=== PATIENT | male | born 1955 | race Caucasian/White ===

== ENCOUNTER 2019-07-31 09:48 | Inpatient (IN) ==
[2019-07-31 10:29] LABS: BASO# 0.03 X1000 (0.0-0.2); BASO% 0.2 % (0.0-0.8); EOS# 0.14 X1000 (0.0-0.7); EOS% 0.9 % (0.0-10.0); HEMATOCRIT 45.7 % (42.0-52.0); HEMOGLOBIN 15.2 g/dL (14.0-18.0); IMM GRAN# 0.05 X1000 (0.0-0.04); IMM GRAN% 0.3 % (0.0-0.5); LYMPH# 2.02 X1000 (1.2-3.4); LYMPH% 12.7 % (20.5-51.1); MCH 30.4 PG (27-31); MCHC 33.3 g/dL (33-37); MCV 91.4 FL (81-99); MONO# 1.46 X1000 (0.11-0.59); MONO% 9.2 % (1.7-9.3); MPV 10.9 FL (7.4-10.4); NEUT# 12.19 X1000 (1.4-6.5); NEUT% 76.7 % (42.2-75.2); PLT 311 X1000 (130-400); RDW 13.4 % (11.5-14.5); WBC 15.89 X1000 (4.8-10.8)
[2019-07-31 10:57] LABS: AGAP 16; ALBUMIN 4.7 g/dL (3.5-5.0); ALKALINE PHOSPHATASE 89 U/L (32-122); BUN 15 mg/dL (8-22); CALCIUM 9.4 mg/dL (8.8-10.2); CHLORIDE 102 mmol/L (98-107); COSMO 286; CREATININE 0.8 mg/dL (0.7-1.2); ESTIMATED GFR > 60; GLUCOSE 144 mg/dL (70-104); GOT 15 U/L (10-34); GPT 30 U/L (10-44); LIPASE 14 U/L (13-60); POTASSIUM 4.1 mmol/L (3.5-5.1); SODIUM 142 mmol/L (136-145); TCO2 23 mmol/L (25-35); TOTAL PROTEIN 7.7 g/dL (6.3-8.3)
[2019-07-31 11:06] LABS: URINE SOURCE CLEAN CATCH
[2019-07-31 11:23] LABS: BILIRUBIN URINE NEGATIVE (NEGATIVE); BLOOD URINE NEGATIVE (NEGATIVE); COLOR YELLOW; GLUCOSE URINE TRACE mg/dL (NEGATIVE); KETONE URINE NEGATIVE (NEGATIVE); LEUKOCYTES URINE NEGATIVE (NEGATIVE); NITRITE URINE NEGATIVE (NEGATIVE); PH URINE 5.5; PROTEIN URINE TRACE mg/dL (NEGATIVE); SP GRAVITY URINE 1.026; TURBIDITY URINE CLEAR (CLEAR); UROBILINOGEN URINE NORMAL (NORMAL)
[2019-07-31 11:24] LABS: UR EPITHELIAL CELLS <10 /HPF (<10); URINE BACTERIA NEGATIVE /HPF; URINE RBC <10 /HPF (<10); URINE WBC <10 /HPF (<10)
--- NOTE | 2019-07-31 11:34 | Diag Imaging Result Doc PS360 ---
EXAM: FLAT/UPRIGHT ABD/1 VIEW CHEST HISTORY: ABD PAIN VOMITIN HX OF BOWEL OBSTRUCTION TECHNIQUE: Two view abdomen. Single view chest. COMPARISON: 06/28/2017 FINDINGS: There are multiple dilated proximal small bowel loops with a paucity of distal gas and air-fluid levels on the erect view consistent with high-grade mechanical small bowel obstruction. No free air is appreciated. No pulmonary infiltrates. IMPRESSION: High-grade mechanical small bowel obstruction. Electronically signed by Isamar Huitron 07/31/2019 11:32 AM
[2019-07-31] MEDS ORDERED: ZOFRAN IV ONE (13:27)
[2019-07-31] MEDS ORDERED: MORPHINE IV ONE (13:44)
[2019-07-31] MEDS ORDERED: NS 1,000 ML IV SCH (14:00)
--- NOTE | 2019-07-31 14:31 | Diag Imaging Result Doc PS360 ---
EXAM: CT ABD/PELVIS W/IV CONT ONLY 07/31/2019 HISTORY: SBO TECHNIQUE: This exam was performed using automated exposure control, adjustment of mA or kV according to patient size, and/or use of iterative reconstruction technique. COMMENT: There is no evidence of acute disease in the visualized portion of the chest. There is hepatic steatosis. The spleen and adrenal glands pancreas and kidneys are stable in appearance. There is cholelithiasis. The aorta is not distended. The mesenteric and renal arteries are patent. There is some gas in the colon without evidence of dilatation. There are distended small bowel loops in the proximal jejunum. There is a transitional zone at the level of the umbilicus on image 111 in the midline anteriorly. The ileum distal to this is normal in caliber. The appendix is normal in appearance. Pelvis: There is no evidence of free fluid. The urinary bladder is unremarkable. There are sclerotic nodules in the right iliac bone which have not changed significantly since the previous examination of 06/25/2017. This presumably due to bone islands. IMPRESSION: 1. Partial small bowel obstruction similar in appearance to the previous study. 2. Hepatic steatosis. Electronically signed by Darren Aguirre 07/31/2019 2:29 PM
--- NOTE | 2019-07-31 15:43 | HISTORY AND PHYSICAL ---
PRIMARY CARE PHYSICIAN: Dr. Arguello. CHIEF COMPLAINT: Of abdominal pain, nausea, vomiting and diarrhea that began around 9 p.m. last night and progressively worsened, last known bowel movement was Wednesday. HISTORY OF PRESENTING ILLNESS: This is a 63-year-old male who presents to [facility] ER with complaints of generalized abdominal pain worse in the left lower quadrant with nausea, vomiting and diarrhea that began around 9 p.m. last night and progressively worsened. Last known good bowel movement was on Wednesday. Workup in the emergency room showed a white blood cell count of 15.89. Abdomen x-ray showed a high-grade mechanical small- bowel obstruction. CT of the abdomen and pelvis showed a partial small-bowel obstruction similar in appearance to a previous study and hepatic steatosis so he will be admitted to the medical unit at [place] for further evaluation and treatment. PAST MEDICAL HISTORY: Of a small bowel obstruction 2 years ago. PAST SURGICAL HISTORY: Hernia repair. FAMILY HISTORY: Reviewed and noncontributory. SOCIAL HISTORY: He currently lives with family. Denies any tobacco use. States he drinks 6 to 12 beers on the weekends and denies any illicit drug use. ALLERGIES: No known drug allergies. HOME MEDICATIONS: We will hold his ibuprofen 400 mg p.o. p.r.n. LABORATORY DATA: Showed a white blood cell count of 15.89, hemoglobin 15.2, hematocrit 45.7, platelets 311,000. Sodium 142, potassium 4.1, chloride 102, CO2 23, BUN of 15, creatinine 0.8, glucose 144, amylase 41, lipase 14. Urinalysis is negative. Abdomen x-ray showed a high-grade mechanical small-bowel obstruction. CT of the abdomen and pelvis showed a partial small-bowel obstruction similar in appearance to the previous study and a hepatic steatosis. REVIEW OF SYSTEMS: He denied any fever, chills, blurred vision, dizziness, chest pain, coughing, shortness of breath, had abdominal pain worse in the left lower quadrant, nausea, vomiting, diarrhea. Denied any burning or hurting with urination. PHYSICAL EXAMINATION: On arrival had a temperature of 98 degrees, pulse 90, respirations 18, blood pressure 182/95, saturating 95% on room air. GENERAL: This is a 63-year-old male who is lying in the bed and answers questions appropriately. HEENT: Normocephalic, atraumatic. Normal ENT inspection. Oropharynx and nares are clear. Pupils are equal, round, and reactive to light, accommodation. Extraocular movements are intact. NECK: Normal inspection, normal range of motion. LUNGS: Clear to auscultation bilaterally with equal lung expansion, chest wall movement. HEART: With regular rate and rhythm. No murmurs, rubs or gallops. ABDOMEN: Was soft, there is tenderness to palpation throughout but that is worse in the left lower quadrant. Hypoactive bowel sounds x4 quadrants. MUSCULOSKELETAL: He had 5/5 strength x4 extremities. NEUROLOGICAL: The cranial nerves 2-12 appear grossly intact. ASSESSMENT: 1. Partial small-bowel obstruction. 2. Generalized abdominal pain with nausea, vomiting, diarrhea secondary to #1. 3. Leukocytosis. 4. Ethanol abuse . OUR PLAN: He will be admitted to the medical unit placed on telemetry, held n.p.o. Will consult General Surgery, apply SCDs for DVT prophylaxis. Place on normal saline at 125 mL an hour, Ativan 1 mg IV q.4 hours p.r.n. for alcohol withdrawal, Zofran 4 mg IV q.4 hours p.r.n. nausea, vomiting. Recheck CBC, BMP in the a.m. Further orders after seen by attending and by analytical consultant. Dictated by IRA Mcelroy for Benigno Tellez MD cc: MD Benigno San MD
[2019-07-31] MEDS ORDERED: MORPHINE IV PRN (16:57)
[2019-07-31] MEDS ORDERED: ATIVAN IV PRN (17:52)
[2019-07-31] MEDS ORDERED: ZOFRAN IV PRN (17:52)
--- NOTE | 2019-07-31 18:06 | PROVIDER DOCUMENTATION ---
This chart was entered by Madelaine Barreto Scribe, acting as scribe for Maged Alicea MD. HPI-Abdominal Pain/GI Problem - General Chief Complaint: Abdominal Pain Stated Complaint: POSS BOWEL OBS Time Seen by Provider: 07/31/19 13:42 Source: patient Allergies/Adverse Reactions: Patient Allergies Allergy/AdvReac Type Severity Reaction Status Date / Time No Known Allergies Allergy Verified 07/31/19 14:30 Home Medications: Home Medication List Medication Instructions Recorded Confirmed Last Taken Type Ibuprofen [Advil] 400 mg PO PRN PRN 07/31/19 07/31/19 Unknown History - History of Present Illness-ABD Nature of Presenting Problems: Pt is a 63 yom who presents to the ED with a cc of abd pain. Pt states that the pain began this morning around 9:00am. Pt has a hx of an bowel obstruction. Pt reports N/V but no diarrhea or bloody stool. Pt state sthat he felt "hot this morning" but is unsure of fever. Pt denies any chest pain but reports SOB w/ exertion. Pt does not present to the ED with any other complaints. Abdominal Pain Onset Location: reports: LUQ, epigastric Quality of Pain: reports: aching Severity in ED: reports: mild Onset/Duration: reports: this morning Timing: reports: still present Activities at Onset: reports: none Exposure to sick contacts?: No Modifying Factors: improves with: nothing Associated Symptoms: reports: nausea, vomiting Last BM: this morning Dark Stools Present?: reports: none noticed Rectal Bleeding: reports: none Rectal Pain: reports: none Emesis Description: reports: none Bruising or Bleeding Gums?: No Similar Symptoms Previously?: No Recently seen or treated by another doctor?: No Review of Systems - Adult - REVIEW OF SYSTEMS - ADULT Constitutional: reports: see HPI Eyes: reports: no symptoms reported Ears, Nose, Mouth & Throat: reports: no symptoms reported Cardiovascular: reports: no symptoms reported Respiratory: reports: see HPI, shortness of breath (w/ exertion) Gastrointestinal: reports: see HPI, abdominal pain (LUQ, Epigastric), nausea, vomiting Genitourinary: reports: no symptoms reported Musculoskeletal: reports: no symptoms reported Integumentary: reports: no symptoms reported Neurological: reports: no symptoms reported Psychiatric: reports: no symptoms reported Endocrine: reports: no symptoms reported Hematologic/Lymphatic: reports: no symptoms reported Allergic/Immunologic: reports: no symptoms reported All Other Systems: Reviewed and Negative Past History - Adult - PAST MEDICAL HISTORY-ADULT Review of Records: reports: Old Records Reviewed Major Childhood Illnesses: reports: denies history Cardiovascular: reports: denies history - IMMUNIZATION STATUS Childhood Immunizations: See Nurse Assessment Flu Vaccine: See Nurse Assessment - FAMILY HISTORY Family History: reviewed, not pertinent - SOCIAL HISTORY Smoking: non-smoker Substance Use: denies Living Situation: family Physical Exam-General - PHYSICAL EXAM-ADULT Initial Vital Signs Reviewed: Yes - CONSTITUTIONAL General Appearance: alert, no apparent distress - EYES Eyes: PERRL/EOMI, pink conjunctivae - HEAD, EARS, NOSE, MOUTH & THROAT HENMT: normocephalic/atraumatic, moist mucous membranes, normal ENT inspection, TMs normal, pharynx normal - NECK Neck: non-tender, normal inspection - RESPIRATORY Respiratory: chest non-tender, lungs clear, normal breath sounds. negative: c rackles, wheezing - CARDIOVASCULAR Cardiovascular: normal peripheral pulses, regular rate, rhythm, no edema, no gallop, no JVD, no murmur. negative: bradycardia, tachycardia - GASTROINTESTINAL (ABDOMEN) Abdominal Exam: tenderness (LUQ, Epigastric). negative: normal bowel sounds (decreased) - MUSCULOSKELETAL Back Exam: normal inspection Extremity: normal range of motion, non-tender, normal inspection - SKIN Integumentary: normal color, normal turgor, warm/dry. negative: ecchymosis, erythema - PSYCHIATRIC Psych/Mental Status: normal mood/affect, normal thought content, normal thought process, oriented x 3 Progress - PLAN OF CARE/RESULTS Progress/Plan/Lab Results: Vital Signs - 8 hr 07/31/19 10:08 Temperature 98 F Pulse Rate 90 Respiratory Rate 18 Blood Pressure 182/95 O2 Sat by Pulse Oximetry 95 Laboratory Results - last 24 hr 07/31/19 07/31/19 07/31/19 10:16 10:16 10:16 WBC 15.89 H RBC 5.00 Hgb 15.2 Hct 45.7 MCV 91.4 MCH 30.4 MCHC 33.3 RDW Std Deviation 13.4 Plt Count 311 MPV 10.9 H Immature Gran % (Auto) 0.3 Neut % (Auto) 76.7 H Lymph % (Auto) 12.7 L Monroe % (Auto) 9.2 Eos % (Auto) 0.9 Baso % (Auto) 0.2 Immature Gran # (Auto) 0.05 H Neut # (Auto) 12.19 H Lymph # (Auto) 2.02 Monroe # (Auto) 1.46 H Eos # (Auto) 0.14 Baso # (Auto) 0.03 Sodium 142 Potassium 4.1 Chloride 102 Carbon Dioxide 23 L Anion Gap 16 BUN 15 Creatinine 0.8 Estimated GFR/1.73 m2 > 60 BUN/Creatinine Ratio 19 Glucose 144 H Calculated Osmolality 286 Calcium 9.4 Total Bilirubin 1.00 AST 15 ALT 30 Alkaline Phosphatase 89 Total Protein 7.7 Albumin 4.7 Globulin 3.0 Albumin/Globulin Ratio 2.0 Amylase 41 Lipase 14 Urine Source Urine Color Urine Turbidity Urine pH Ur Specific [place] Urine Protein Ur Glucose (Stick) Ur Ketones (Stick) Urine Blood Urine Nitrite Urine Bilirubin Urobilinogen Dipstick Urine Leukocytes Urine WBC (Auto) Urine RBC (Auto) U Epithel Cells (Auto) Urine Bacteria (Auto) 07/31/19 11:04 WBC RBC Hgb Hct MCV MCH MCHC RDW Std Deviation Plt Count MPV Immature Gran % (Auto) Neut % (Auto) Lymph % (Auto) [place] % (Auto) Eos % (Auto) Baso % (Auto) Immature Gran # (Auto) Neut # (Auto) Lymph # (Auto) Monroe # (Auto) Eos # (Auto) Baso # (Auto) Sodium Potassium Chloride Carbon Dioxide Anion Gap BUN Creatinine Estimated GFR/1.73 m2 BUN/Creatinine Ratio Glucose Calculated Osmolality Calcium Total Bilirubin AST ALT Alkaline Phosphatase Total Protein Albumin Globulin Albumin/Globulin Ratio Amylase Lipase Urine Source CLEAN CATCH Urine Color YELLOW Urine Turbidity CLEAR Urine pH 5.5 Ur Specific [place] 1.026 Urine Protein TRACE A Ur Glucose (Stick) TRACE Ur Ketones (Stick) NEGATIVE Urine Blood NEGATIVE Urine Nitrite NEGATIVE Urine Bilirubin NEGATIVE Urobilinogen Dipstick NORMAL Urine Leukocytes NEGATIVE Urine WBC (Auto) <10 Urine RBC (Auto) <10 U Epithel Cells (Auto) <10 Urine Bacteria (Auto) NEGATIVE Orders Category Date Time Status CT ABD/PELVIS W/IV CONT ONLY [CT] Stat Exams 07/31/19 13:32 Ordered FLAT/UPRIGHT ABD/1 VIEW CHEST [RAD] Stat Exams 07/31/19 10:11 Completed AMYLASE [CHEM] Stat Lab 07/31/19 10:16 Completed CBC WITH DIFF [HEME] Stat Lab 07/31/19 10:16 Completed COMPREHENSIVE METABOLIC PANEL [CHEM] Stat Lab 07/31/19 10:16 Completed LIPASE [CHEM] Stat Lab 07/31/19 10:16 Completed URINALYSIS W/POSS RFLX CULT [URINALYSIS] Stat Lab 07/31/19 11:04 Completed Ondansetron [Zofran] Med 07/31/19 13:27 Discontinued 8 mg IV NOW ONE Result Diagrams: 07/31/19 10:16 07/31/19 10:16 Departure - Departure Date of Disposition Decision: 07/31/19 Time of Disposition Decision: 13:57 DIAGNOSIS: Small bowel obstruction Disposition: ADMITTED INPATIENT 09 Certified Medical Emergency: Emergent Condition: Good - Critical Care Note This patient required my direct & personal management of CC.: No Attestation - Physician/ DIEGO Attestation Patient care was provided by Advanced Practice Provider:: No The physician spent face to face time with patient:: Yes Advanced Practice Provider documentation review:: Supervising physician onsite and consulted in the evaluation and care of this patient. The physician did have a face to face encounter with the patient. This chart was documented by the indicated scribe, (Madelaine Barreto Scribe) and accurately reflects the services I performed and decisions made by me, Maged Alicea MD, as attested by the provider's signature.
--- NOTE | 2019-07-31 19:22 | Diag Imaging Result Doc PS360 ---
EXAM: CHEST-PORTABLE 07/31/2019 HISTORY: NG tube placement TECHNIQUE: Portable upright chest and abdomen for NG tube placement COMMENT: The NG tube tip is in the fundus of the stomach. There is dilatation of multiple small bowel loops which appears slightly better than on the previous study at 1052. IMPRESSION: NG tube in the stomach. Electronically signed by Darren Aguirre 07/31/2019 7:20 PM
--- NOTE | 2019-07-31 19:22 | HISTORY AND PHYSICAL ---
ADDENDUM: Patient seen and examined by myself. Full note dictated and discussed with nurse practitioner. Patient presented to the hospital with abdominal pain, progressively worsening for the past several days, does have a history of small bowel obstruction approximately 2 years ago, states that he drinks around 6 to 12 beers on the weekends. Currently, he is awake, alert, oriented. His abdomen is soft, tender with decreased bowel sounds. He does have a partial small- bowel obstruction. We will admit him to the hospital, follow him closely for alcohol withdrawal. Keep him n.p.o. Therefore, we are going to use Ativan, and we will follow. cc: Benigno Tellez MD
[2019-07-31] MEDS: NS 1,000 ML IV SCH (21:27)
--- NOTE | 2019-07-31 21:42 | GENERAL SURGERY CONSULTATION ---
DATE: 07/31/2019 REASON FOR CONSULTATION: Bowel obstruction. CHIEF COMPLAINT: Nausea, vomiting and colicky abdominal pain. HISTORY OF PRESENT ILLNESS: This is a 63-year-old gentleman who had a bowel obstruction 2 years ago that resolved with NG tube decompression. He has had an open umbilical hernia repair in the past as well as back surgery. 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 He said yesterday he developed nausea, vomiting and diarrhea. The diarrhea stopped. He became quite distended and had persistent colicky abdominal pain with worsening distention. He reports normal state of health prior to this, never had a colonoscopy. MEDICAL HISTORY: He has got degenerative spine disease. I believe he has hypertension. SURGICAL HISTORY: He has had back surgery and umbilical hernia repair. SOCIAL HISTORY: He does not smoke, does drink. 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 FAMILY HISTORY: Negative for colon cancer. REVIEW OF SYSTEMS: A 10-point review of systems negative other than what is mentioned in HPI. PHYSICAL EXAMINATION: Vital signs: He is afebrile, pulse is low 100s but has been improving with his IV hydration. Blood pressure is 137/101, oxygen saturation 95% on 2 L. He is 242 pounds, 5 foot 11 inches. General: He is alert in no acute distress. HEENT: No scleral icterus. No cervical mass. Cardiovascular: Low-grade sinus tachycardia. Pulmonary: No increased work of breathing. Abdomen: Distended, but soft, nontender. I do not feel any anterior abdominal wall hernia. Integument: Warm and dry. Psychiatric: Appropriate affect. Neurologic: No gross deficit. Peripheral vascular: No lower extremity edema. Lymphatic: No cervical or inguinal adenopathy. LABORATORY DATA: White count is elevated at 15. Hematocrit is concentrated at 45, platelets 311,000, creatinine 0.8. LFTs are normal. Lipase is normal. Urinalysis is negative other than trace protein. I reviewed a CT scan. ASSESSMENT AND PLAN: A 63-year-old gentleman with bowel obstruction. This is recurrent. He had one 2 years ago. The previous one resolved with nasogastric tube decompression. I have recommended the same. We will keep him n.p.o. with intravenous fluids, serial abdominal examinations and nasogastric tube decompression. We will follow along. We did discuss possibility of exploratory laparotomy if this fails to resolve or if his abdominal exam changes. He understands. cc: Darlene Watson MD
[2019-08-01] MEDS: NS 1,000 ML IV SCH ×2 (06:09→21:27)
[2019-08-01] MEDS ORDERED: PNEUMOVAX 23 IM ONE (06:49)
[2019-08-01 07:43] LABS: BASO# 0.02 X1000 (0.0-0.2); BASO% 0.3 % (0.0-0.8); EOS# 0.12 X1000 (0.0-0.7); EOS% 1.8 % (0.0-10.0); HEMATOCRIT 42.3 % (42.0-52.0); HEMOGLOBIN 13.7 g/dL (14.0-18.0); IMM GRAN# 0.02 X1000 (0.0-0.04); IMM GRAN% 0.3 % (0.0-0.5); LYMPH# 1.56 X1000 (1.2-3.4); LYMPH% 23.9 % (20.5-51.1); MCH 30.8 PG (27-31); MCHC 32.4 g/dL (33-37); MCV 95.1 FL (81-99); MONO# 0.72 X1000 (0.11-0.59); NEUT% 62.7 % (42.2-75.2); PLT 227 X1000 (130-400); RBC 4.45 XMIL (4.7-6.1); RDW 13.5 % (11.5-14.5); WBC 6.54 X1000 (4.8-10.8)
[2019-08-01 08:02] LABS: AGAP 9; BUN 14 mg/dL (8-22); CALCIUM 8.7 mg/dL (8.8-10.2); CHLORIDE 107 mmol/L (98-107); COSMO 289; CREATININE 0.8 mg/dL (0.7-1.2); ESTIMATED GFR > 60; GLUCOSE 133 mg/dL (70-104); POTASSIUM 4.2 mmol/L (3.5-5.1); SODIUM 144 mmol/L (136-145); TCO2 28 mmol/L (25-35)
--- NOTE | 2019-08-01 13:41 | GENERAL SURGERY PROGRESS NOTE ---
DATE: 08/01/2019 SUBJECTIVE: He is having bowel function. Minimal NG tube output, approximately 400 initially when it was placed but no further. No fevers. No tachycardia. OBJECTIVE: Blood pressure 140/81. General: He is alert. Cardiovascular: Normal rate. Abdomen: Soft. Much less distended. Nontender. White count is 6, hematocrit is 42. Creatinine is 0.8. ASSESSMENT AND PLAN: A 63-year-old gentleman with resolving bowel obstruction. We will clamp his nasogastric tube. If he tolerates this throughout the night, we will remove it tomorrow. Plan on advancing his diet. I have discussed plan with the patient and his daughter. cc: Darlene Watson MD
--- NOTE | 2019-08-01 20:41 | PROGRESS NOTE ---
DATE: 08/01/2019 INTERVAL HISTORY: Mr. Darby has had 3 bowel movements. He has been passing gas. He denies nausea, vomiting, or abdominal pain. His is at bedside. VITALS: Temperature 98.6 degrees, pulse 83, respiratory 20, blood pressure 154/79, saturating 96% on room air. PHYSICAL EXAMINATION: Mouth: Oral cavity is moist. He has an NG tube. Lungs: Air entry equal bilaterally. No wheeze, rhonchi or crackles. Heart: S1, S2 normal. No murmur or gallop. Abdomen: Soft, nontender. He has active bowel sounds. Extremities: No lower extremity edema. Neurologic: He is alert and oriented x3. LABS: Suggestive of resolution of leukocytosis. Hemoglobin of 13.7, WBC 6.5, platelet 227,000. His electrolytes suggest BUN of 14, creatinine 0.8. Microbiology: No data. No new imaging. ASSESSMENT AND PLAN: Small-bowel obstruction with prior history of small-bowel obstruction and hernia repair in 2017. The patient has been passing gas, has active bowel sounds and has had bowel movements. I will keep the nasogastric tube and start the patient on a clear liquid diet. Appreciate Surgery recommendation about possibly removing nasogastric tube tomorrow. I will keep him on intravenous morphine and lorazepam as needed and I will decrease intravenous fluids. DISPOSITION: If the patient continues to tolerate clear liquid diet well, the plan is to possibly remove nasogastric tube tomorrow, advance his diet and possibly discharge in next 24 hours. Plan of care discussed with the patient. All of his questions have been answered. cc: Adolfo Sutton MD
[2019-08-02] MEDS: NS 1,000 ML IV SCH (05:36)
--- NOTE | 2019-08-02 16:34 | PROGRESS NOTE ---
DATE: 08/02/2019 INTERVAL HISTORY: No acute events overnight. Subjective: Mr. Darby states he has had several bowel movements and is feeling better. His NG tube was discontinued. VITALS: Currently, temperature 99.4 degrees, pulse 80, respiratory 18, blood pressure 140/90, saturating 100% on room air. PHYSICAL EXAMINATION: General: Not in acute distress. Oral cavity: Moist. Respiratory: Air entry equal bilaterally. No wheeze or crackles. Cardiovascular: S1 and S2 normal. No murmur, rub or gallop. Abdomen: Soft. Gaseous distention. Active bowel sounds. Extremities: No lower extremity edema. Neurologic: He is alert and oriented x3. No new labs. His IV fluids have been discontinued. ASSESSMENT AND PLAN: Small bowel obstruction with prior history of small bowel obstruction and hernia repair in 2017. The patient has been passing gas and has had several bowel movements today. Status post nasogastric tube removal. I will advance his diet to full liquids. Monitor him for 24 hours and anticipate discharge in the next 24 hours. Plan of care discussed with the patient. His questions have been answered. He is in agreement with the plan cc: Adolfo Sutton MD
--- NOTE | 2019-08-02 20:16 | GENERAL SURGERY PROGRESS NOTE ---
DATE: 08/02/2019 SUBJECTIVE: Doing well. His bowels are functioning. NG tube is in place. No further nausea. No fevers. No tachycardia. Blood pressure 144/93. OBJECTIVE: General: He is alert. Cardiovascular: Normal rate. Abdomen: Soft, nontender, nondistended. No new labs. ASSESSMENT AND PLAN: This is a 63-year-old gentleman with bowel obstruction that has resolved. I removed his NG tube. We will keep him on clear liquids today, give him a soft diet tomorrow and plan for home tomorrow. cc: Darlene Watson MD
[2019-08-03 11:05] VITALS: BP 133/87
[2019-08-03] MEDS ORDERED: FLU VACCINE IM ONE (11:35)
--- NOTE | 2019-08-03 12:25 | DISCHARGE SUMMARY ---
ADMISSION DATE: 07/31/2019 DISCHARGE DATE: 08/03/2019 DISCHARGE DISPOSITION: Home. DISCHARGE CONDITION: Hemodynamically stable. The patient has been tolerating full-liquid diet without any recurrence of nausea, vomiting, abdominal pain. He has been passing gas. He has had several bowel movements. DISCHARGE DIAGNOSIS: Small bowel obstruction. OTHER DIAGNOSES: 1. Obesity. 2. Prior history of small bowel obstruction. 3. History of hernia repair. DISCHARGE MEDICATIONS: Ibuprofen 200 mg as needed, which is his home medication. PHYSICAL EXAMINATION: Vital Signs: At the time of discharge, temperature 98.3 degrees, pulse 80, respiratory rate 18, blood pressure 133/87, saturating 99% room air. General: On physical examination, not in acute distress. HEENT: Oral cavity is moist. Lungs: Air entry bilaterally equal. No wheeze, rhonchi. Cardiovascular: S1, S2 normal. No murmur or gallop. Abdomen: Soft, active bowel sounds. Nontender. He does have some gaseous distention. Extremity: No lower extremity edema. Neurologic: He is alert and oriented x3. LABORATORY DATA: At the time of discharge, WBC 6000, hemoglobin 13.7, platelet 227,000, potassium 4.2, sodium 144, BUN 14, creatinine 0.8. No microbiological data during hospital admission. IMAGING DURING HOSPITAL ADMISSION: 1. Abdomen and pelvis CT on 07/31/2019 had partial small bowel obstruction and hepatic steatosis. 2. Chest x-ray on 07/31/2019 had NG tube in proper position. CONSULTATION DURING HOSPITAL ADMISSION: General Surgeon, Dr. Watson. HOSPITAL COURSE SUMMARY: Mr. Darby is a 63-year-old man with a previous history of small bowel obstruction and hernia repair, who came in with chief complaints of abdominal pain, nausea and vomiting of about 12 hours' duration, which progressively worsened. He had last bowel movement around 72 hours prior to current presentation. In the hospital, he was found to have a distended abdomen, though he was hemodynamically stable. CT scan of the abdomen and pelvis and abdomen x-ray were performed, which suggested small bowel obstruction, so he was admitted for further management. The patient was given bowel rest, NG tube under suction, following which his symptoms improved. He was no longer having nausea and vomiting, and he started having bowel movement. His NG tube was discontinued. He was started on clear liquid diet, which he tolerated well. After advancing diet to full-liquid, he was still able to tolerate it well with passage of gas and bowel movements. It was decided to discharge him. He was provided detailed discharge instructions including in diet and following with outpatient provider. All of his questions were answered. TIME SPENT: There was 25 minutes spent in preparing discharge summary, providing instructions to the patient and his at bedside. I allowed them sufficient time to ask questions and instructed them about small bowel obstruction. All of their questions were answered. cc: Adolfo Sutton MD MTDD
== END 2019-08-03 12:20 | disposition home or self-care (01) | DRG 390 ==
LOC: P.ED 09:48 → SUATTDRO 16:32 → 4N 16:32
PROVIDERS: ATTEND Internal Medicine